=== PATIENT | female | born 1985 | race Caucasian/White ===

== ENCOUNTER 2018-09-24 11:56 | Inpatient (IN) | payer MEDICAID ==
[2018-09-24] MEDS ORDERED: METHYLERGONOVINE 0.2 MG INJ IM (14:30)
[2018-09-24] MEDS ORDERED: MISOPROSTOL 200 MCG TAB PR (14:30)
[2018-09-24] MEDS ORDERED: CARBOPROST 250 MCG INJ IM (14:30)
[2018-09-24] MEDS ORDERED: OXYTOCIN 30 UNITS/LR 500 ML IV ×2 (14:30→22:00)
[2018-09-24 15:16] LABS: ADD MAN DIFF? NO
[2018-09-24 15:22] LABS: BASOPHILS % 0.3 % (0.0-2.0); EOSINOPHILS % 0.1 % (0.0-7.0); HEMATOCRIT 30.8 % (37.0-47.0); HEMOGLOBIN 9.7 g/dl (12.0-16.0); LYMPHOCYTES # 1.4 10^3/ul (0.8-2.9); MEAN CORPUSCULAR HEMOGLOBIN 25.5 pg (29.0-33.0); MEAN CORPUSCULAR HGB CONC 31.5 g/dl (32.0-37.0); MEAN CORPUSCULAR VOLUME 81.1 fl (82.0-101.0); MEAN PLATELET VOLUME 11.5 fl (7.4-10.4); MONOCYTE # 0.5 10^3/ul (0.3-0.9); MONOCYTES % 6.6 % (0.0-11.0); NEUTROPHIL # 5.7 10^3/ul (1.6-7.5); NEUTROPHILS % 74.3 % (39.0-77.0); PLATELET COUNT 160 10^3/UL (140-415); RED CELL DISTRIBUTION WIDTH 18.2 % (11.5-14.5)
[2018-09-24 15:22] LABS: WHITE BLOOD COUNT 7.7 10^3/ul (4.8-10.8)
[2018-09-24 15:37] LABS: INR 0.84; PROTIME 11.6 Sec (11.9-14.9); PT RATIO 0.9
[2018-09-24 15:38] LABS: PARTIAL THROMBOPLASTIN TIME 25.3 Sec (23.0-35.0)
[2018-09-24] MEDS: LACTATED RINGER'S 1,000 ML IV ×2 (15:49→22:44)
[2018-09-24 16:10] LABS: HEPATITIS B SURFACE ANTIGEN NEGATIVE (NEGATIVE)
[2018-09-24 19:06] LABS: RAPID PLASMA REAGIN NONREACTIVE (NR)
[2018-09-24] MEDS ORDERED: IBUPROFEN 600 MG TAB PO (22:00)
[2018-09-24] MEDS ORDERED: BUTORPHANOL 2 MG INJ IV (22:00)
[2018-09-24] MEDS: AMPICILLIN 2 GM/NS (PMX) 100 ML IV (22:49)
[2018-09-24] MEDS: OXYTOCIN 30 UNITS/LR 500 ML IV (22:54)
[2018-09-25] MEDS: AMPICILLIN 1 GM/NS (PMX) 50 ML IV (03:08)
[2018-09-25] MEDS: LIDOCAINE 1% (MPF) 30 ML INJ INJ (06:35)
[2018-09-25] MEDS ORDERED: OXYTOCIN 30 UNITS/LR 500 ML IV (07:00)
[2018-09-25] MEDS ORDERED: CARBOPROST 250 MCG INJ IM (07:00)
[2018-09-25] MEDS ORDERED: METHYLERGONOVINE 0.2 MG INJ IM (07:00)
[2018-09-25] MEDS ORDERED: HYDROCODONE/APAP (5/325) TAB PO (07:00)
[2018-09-25] MEDS ORDERED: MISOPROSTOL 200 MCG TAB PR (07:00)
[2018-09-25] MEDS ORDERED: BENZOCAINE 20% 56 ML SPRAY TOP (07:00)
[2018-09-25] MEDS: OXYTOCIN 30 UNITS/LR 500 ML IV ×2 (07:24→15:22)
[2018-09-25] MEDS: IBUPROFEN 600 MG TAB PO ×3 (11:39→23:47)
[2018-09-25] MEDS: LACTATED RINGER'S 1,000 ML IV* ×3 (12:29→22:53)
[2018-09-26] MEDS: IBUPROFEN 600 MG TAB PO ×4 (05:32→23:45)
[2018-09-26] MEDS: LACTATED RINGER'S 1,000 ML IV* (07:11)
[2018-09-26 08:56] LABS: ADD MAN DIFF? NO
[2018-09-26 09:00] LABS: BASOPHILS % 0.4 % (0.0-2.0); EOSINOPHILS # 0.1 10^3/ul (0.0-0.5); EOSINOPHILS % 0.7 % (0.0-7.0); HEMATOCRIT 32.5 % (37.0-47.0); LYMPHOCYTES # 1.5 10^3/ul (0.8-2.9); LYMPHOCYTES % 18.2 % (15.0-51.0); MEAN CORPUSCULAR HEMOGLOBIN 25.4 pg (29.0-33.0); MEAN CORPUSCULAR HGB CONC 30.8 g/dl (32.0-37.0); MEAN CORPUSCULAR VOLUME 82.7 fl (82.0-101.0); MEAN PLATELET VOLUME 11.1 fl (7.4-10.4); MONOCYTE # 0.4 10^3/ul (0.3-0.9); MONOCYTES % 4.9 % (0.0-11.0); NEUTROPHIL # 6.3 10^3/ul (1.6-7.5); NEUTROPHILS % 75.3 % (39.0-77.0); PLATELET COUNT 147 10^3/UL (140-415); RED BLOOD COUNT 3.93 10^6/ul (4.20-5.40); RED CELL DISTRIBUTION WIDTH 18.7 % (11.5-14.5)
[2018-09-26 09:00] LABS: WHITE BLOOD COUNT 8.3 10^3/ul (4.8-10.8)
[2018-09-27] MEDS: IBUPROFEN 600 MG TAB PO ×2 (05:43→11:25)
[2018-09-27] MEDS: DIPHTH/TET/ACEL PERTUSS (ADULT) 0.5 ML VIAL IM* (11:25)
== END 2018-09-27 16:44 | disposition home or self-care (01) | DRG 807 ==
LOC: OBT 11:56 → PP1 09-25 10:25 → L-D 11:56 → OBT 13:31 → L-D 13:53
PROVIDERS: Obstetrics & Gynecology
PROC: 10E0XZZ Delivery of Products of Conception, External Approach (ICD-10-PCS; principal; 2018-09-25)
PROC: 0KQM0ZZ Repair Perineum Muscle, Open Approach (ICD-10-PCS; 2018-09-25)
DX: O69.81X0 Labor and delivery complicated by cord around neck, without compression, not applicable or unspecified (principal); Z37.0 Single live birth; O70.1 Second degree perineal laceration during delivery; Z3A.38 38 weeks gestation of pregnancy
CPT/HCPCS: 76818; 85025; 85610; 85730; 86592; 86850; 86900; 86901; 87340; 90686; 90715